=== PATIENT | male | born 1965 | race Caucasian/White ===

== ENCOUNTER 2020-03-05 17:23 | Emergency (ER) | payer SELFPAY ==
--- NOTE | 2020-03-05 19:30 | ER Document Report ---
ED Medical Screen (RME) - General Chief Complaint: ETOH Abuse Stated Complaint: ALCOHOL ABUSE Time Seen by Provider: 03/05/20 19:21 Mode of Arrival: Ambulatory Information source: Patient Notes: Patient is a 54-year-old male who was sent over to the ER by [facility]. They are requesting the patient be medically clear and his alcohol level be reasonable. Patient states that he had been sober 10 years off until approximately 2 weeks ago when he started drinking again. His normal amount of alcohol is 1/5 of liquor a day he has dated he only had about a half of the fifth of liquor today. Last drink was approximately 6 hours ago at around 2:30 PM. Patient also has a history of hypertension. But he does not smoke. Patient expresses desire to stop drinking again. Physical examination: Patient is a well-nourished well-developed 54-year-old male no apparent distress on examination. Cardiac: Patient is tachycardic on monitor the 105 bpm. No murmurs auscultated. Lungs: Bilateral breath sounds breath sounds decreased throughout no rhonchi rales or wheeze heard. Abdomen: Bowel sounds present all 4 quads nontender to palpate. Psych: Patient denies any suicidal homicidal ideation. He is expressing concerns and desire to stop drinking again. I have greeted and performed a rapid initial assessment of this patient. A comprehensive ED assessment and evaluation of the patient, analysis of test results and completion of the medical decision making process will be conducted by additional ED providers. Dictation of this chart was performed using voice recognition software; therefore, there may be some unintended grammatical errors. - Related Data Allergies/Adverse Reactions: No Known Allergies Allergy (Unverified 03/05/20 19:18) Home Medications: metoprolol, losartan Past Medical History - Social History Chew tobacco use (# tins/day): No Frequency of alcohol use: Heavy Drug Abuse: None Physical Exam - Vital signs Vitals: Temp Pulse Resp BP Pulse Ox 98.3 F 105 H 20 147/84 H 94 03/05/20 17:34 03/05/20 17:34 03/05/20 17:34 03/05/20 17:34 03/05/20 17:34 Course - Vital Signs Vital signs: Temp Pulse Resp BP Pulse Ox 98.3 F 105 H 20 147/84 H 94 03/05/20 17:34 03/05/20 17:34 03/05/20 17:34 03/05/20 17:34 03/05/20 17:34
--- NOTE | 2020-03-05 20:33 | RADIOLOGY REPORT (SQ) ---
EXAM DESCRIPTION: XR CHEST 1 VIEW COMPLETED DATE/TME: 03/05/2020 19:53 CLINICAL HISTORY: 54 years, Male, Medical clearance COMPARISON: None. TECHNIQUE: PA view of the chest FINDINGS: Cardiomediastinal silhouette is not enlarged. No acute lung pleural bone abnormalities. IMPRESSION: No acute findings in chest. copyright 2010 [employer]- All Rights Reserved
[2020-03-05 20:56] LABS: ABSOLUTE EOSINOPHILS # (AUTO) 0.1 10^3/uL (0.0-0.6); ABSOLUTE LYMPHOCYTES (AUTO) 3.2 10^3/uL (0.5-4.7); ABSOLUTE MONOCYTES (AUTO) 0.6 10^3/uL (0.1-1.4); ABSOLUTE NEUT (AUTO) 3.3 10^3/uL (1.7-8.2); BASOPHILS % (AUTO) 0.3 % (0-2); HEMATOCRIT 44.3 % (37.9-51.0); HEMOGLOBIN 14.7 g/dL (13.5-17.0); LYMPHOCYTES % (AUTO) 44.2 % (13-45); MEAN CORPUSCULAR HEMOGLOBIN 27.4 pg (27.0-33.4); MEAN CORPUSCULAR HGB CONC 33.1 g/dL (32.0-36.0); MEAN CORPUSCULAR VOLUME 83 fl (80-97); MONOCYTES % (AUTO) 8.8 % (3-13); PLATELET COUNT 178 10^3/uL (150-450); RED BLOOD COUNT 5.36 10^6/uL (4.35-5.55); SEGMENTED NEUTROPHILS % (AUTO) 45.7 % (42-78); TOTAL CELLS COUNTED % (AUTO) 100 %; WHITE BLOOD COUNT 7.1 10^3/uL (4.0-10.5)
--- NOTE | 2020-03-05 21:03 | EKG REPORT ---
SEVERITY:- ABNORMAL ECG - SINUS RHYTHM LATERAL INFARCT, OLD CONSIDER ANTEROSEPTAL INFARCT LOW VOLTAGE EKG : Confirmed by: Steven West MD 05-Mar-2020 21:02:37
[2020-03-05 21:11] LABS: APPEARANCE,URINE SLIGHTLY-CLOUDY; BILIRUBIN,URINE NEGATIVE (NEGATIVE); COLOR,URINE YELLOW; GLUCOSE, URINE NEGATIVE (NEGATIVE); KETONES,URINE NEGATIVE (NEGATIVE); LEUKOCYTE ESTERASE,URINE TRACE (NEGATIVE); NITRITE,URINE NEGATIVE (NEGATIVE); PROTEIN,URINE 100 mg/dL (NEGATIVE); URINE SPECIFIC GRAVITY 1.024; UROBILINOGEN,URINE NEGATIVE mg/dL (<2.0)
[2020-03-05 21:14] LABS: ALBUMIN 4.7 g/dL (3.5-5.0); ALKALINE PHOSPHATASE 103 U/L (38-126); ANION GAP 12 (5-19); ASPARTATE AMINO TRANSFERASE 35 U/L (17-59); BILIRUBIN,DIRECT 0.2 mg/dL (0.0-0.4); BILIRUBIN,TOTAL 0.3 mg/dL (0.2-1.3); BLOOD UREA NITROGEN 11 mg/dL (7-20); CALCIUM 9.3 mg/dL (8.4-10.2); CARBON DIOXIDE 31 mmol/L (22-30); CHLORIDE 103 mmol/L (98-107); GLUCOSE 105 mg/dL (75-110); POTASSIUM 5.1 mmol/L (3.6-5.0); TOTAL PROTEIN 7.6 g/dL (6.3-8.2)
[2020-03-05 21:22] LABS: URINE AMPHETAMINES SCREEN NEGATIVE; URINE BARBITURATES SCREEN NEGATIVE; URINE COCAINE SCREEN NEGATIVE; URINE METHADONE SCREEN NEGATIVE; URINE PHENCYCLIDINE SCREEN NEGATIVE
[2020-03-05 21:23] LABS: URINE BENZODIAZEPINES SCREEN UNCONFIRMED POSITIVE; URINE MARIJUANA (THC) SCREEN UNCONFIRMED POSITIVE
[2020-03-05 21:38] LABS: ALCOHOL 317 mg/dL (NONE DETECTED)
--- NOTE | 2020-03-05 22:43 | ER Document Report ---
ED Substance Abuse / Acc. OD <DANTE RAMON - Last Filed: 03/06/20 07:39> - General Mode of Arrival: Ambulatory Information source: Patient - Related Data Home Medications: metoprolol, losartan <BUD AQUINO JR - Last Filed: 03/06/20 20:23> - General Chief Complaint: ETOH Abuse Stated Complaint: ALCOHOL ABUSE Time Seen by Provider: 03/05/20 19:21 Notes: 03/05/20 19:21 - ED Nursing Note by REAL ROACH Acct Num: [id number] : 1965 Patient Age: 54 pt comes to ed from [facility] for c/o needing detox. pt states he has drank a half a fifth today of vodka. pt states he relapsed approx 2 weeks ago after being sober for 10years. Denies trigger to his relapse. Pt is aaox4 in nad, breathing e/u, speaking in full clear sentences. pt denies pain, no slurring speech or tremors noted. pt reports feeling shakey. last drink approx 1330 today. Initialized on 03/05/20 19:21 - END OF NOTE ED Medical Screen (Nic melara) - General Chief Complaint: ETOH Abuse Stated Complaint: ALCOHOL ABUSE Time Seen by Provider: 03/05/20 19:21 Mode of Arrival: Ambulatory Information source: Patient Notes: Patient is a 54-year-old male who was sent over to the ER by [facility]. They are requesting the patient be medically clear and his alcohol level be reasonable. Patient states that he had been sober 10 years off until approximately 2 weeks ago when he started drinking again. His normal amount of alcohol is 1/5 of liquor a day he has dated he only had about a half of the fifth of liquor today. Last drink was approximately 6 hours ago at around 2:30 PM. Patient also has a history of hypertension. But he does not smoke. Patient expresses desire to stop drinking again. Physical examination: Patient is a well-nourished well-developed 54-year-old male no apparent distress on examination. Cardiac: Patient is tachycardic on monitor the 105 bpm. No murmurs auscultated. Lungs: Bilateral breath sounds breath sounds decreased throughout no rhonchi rales or wheeze heard. Abdomen: Bowel sounds present all 4 quads nontender to palpate. Psych: Patient denies any suicidal homicidal ideation. He is expressing concerns and desire to stop drinking again. MY NOTES 54-year-old male arrives with chief complaint of having nerve problems. He last drank vodka one half of the fifth earlier today and then around 1:00 today had some wine to try to wean down his alcohol cravings. Patient reports she has an RN girlfriend and she insisted him come to the hospital. Patient just got out of [facility] where he was recovering from beer and wine and vodka. Patient reports over 26-year time period of light drinking they were 5 years of very heavy drinking. By heavy drinking patient advises he can consume a bottle of vodka and a bottle of wine. Patient reports for 10 years he was sober and then around 2 weeks ago began to drink again. (BUD AQUINO JR) - Related Data Allergies/Adverse Reactions: No Known Allergies Allergy (Unverified 03/05/20 19:18) Past Medical History - General Information source: Patient - Social History Smoking Status: Never Smoker Cigarette use (# per day): No Chew tobacco use (# tins/day): No Smoking Education Provided: No Frequency of alcohol use: Heavy Drug Abuse: None Lives with: Family Family History: Reviewed & Not Pertinent Patient has suicidal ideation: No Patient has homicidal ideation: No - Past Medical History Cardiac Medical History: Reports: Hx Hypertension <BUD AQUINO JR - Last Filed: 03/06/20 20:23> Review of Systems - Review of Systems Constitutional: See HPI, Weakness EENT: No symptoms reported Cardiovascular: No symptoms reported Respiratory: No symptoms reported Gastrointestinal: No symptoms reported Genitourinary: No symptoms reported Male Genitourinary: No symptoms reported Musculoskeletal: No symptoms reported Skin: No symptoms reported Hematologic/Lymphatic: No symptoms reported Neurological/Psychological: See HPI, Depression, Weakness -: Yes All other systems reviewed and negative <BUD AQUINO JR - Last Filed: 03/06/20 20:23> Physical Exam - Vital signs Interpretation: Hypertensive, Tachycardic - General General appearance: Appears well, Alert - HEENT Head: Normocephalic, Atraumatic Eyes: Normal Conjunctiva: Injected Extraocular movements intact: Yes Eyelashes: Normal Pupils: PERRL Ears: Normal External canal: Normal Mouth/Lips: Normal Mucous membranes: Dry Pharynx: Normal Neck: Normal - Respiratory Respiratory status: No respiratory distress Chest status: Nontender Breath sounds: Normal Chest palpation: Normal - Cardiovascular Rhythm: Regular Heart sounds: Normal auscultation Murmur: No - Abdominal Inspection: Normal Distension: No distension Bowel sounds: Normal Tenderness: Nontender Organomegaly: No organomegaly - Rectal Prostate: Other - deferred - Genitourinary Scrotum: Other - deferred - Back Back: Normal, Nontender - Extremities General upper extremity: Normal inspection, Nontender, Normal color, Normal ROM, Normal temperature General lower extremity: Normal inspection, Nontender, Normal color, Normal ROM, Normal temperature, Normal weight bearing. No: Eamon's sign - Neurological Neuro grossly intact: Yes Cognition: Normal Orientation: AAOx4 Soraya Coma Scale Eye Opening: Spontaneous Soraya Coma Scale Verbal: Oriented [place] Coma Scale Motor: Obeys Commands [place] Coma Scale Total: 15 Speech: Normal Motor strength normal: LUE, RUE, LLE, RLE Sensory: Normal - Psychological Associated symptoms: Normal affect, Normal mood - Skin Skin Temperature: Warm Skin Moisture: Dry Skin Color: Normal <BUD AQUINO JR - Last Filed: 03/06/20 20:23> - Vital signs Vitals: Temp Pulse Resp BP Pulse Ox 98.3 F 105 H 20 147/84 H 94 03/05/20 17:34 03/05/20 17:34 03/05/20 17:34 03/05/20 17:34 03/05/20 17:34 Course - Laboratory Result Diagrams: 03/05/20 20:19 03/05/20 20:19 <DANTE RAMON - Last Filed: 03/06/20 07:39> - Laboratory Result Diagrams: 03/05/20 20:19 03/05/20 20:19 <BUD AQUINO JR - Last Filed: 03/06/20 20:23> - Re-evaluation Re-evalutation: 03/06/20 07:39 I went in to evaluate the patient. He is answering all questions appropriately and is clinically sober. His alcohol level is 100. He reports feeling shaky. Will give 1 mg Ativan p.o. He is medically cleared to go back to [facility] for cosme tment for his alcohol abuse (DANTE RAMON) - Vital Signs Vital signs: Temp Pulse Resp BP Pulse Ox 97.9 F 86 19 141/81 H 98 03/06/20 08:34 03/06/20 08:34 03/06/20 08:34 03/06/20 08:34 03/06/20 08:34 - Laboratory Laboratory results interpreted by me: 03/05/20 03/05/20 03/05/20 20:19 20:19 20:19 RDW 16.0 H Sodium 146.2 H Potassium 5.1 H Carbon Dioxide 31 H Urine Protein 100 H Ur Leukocyte Esterase TRACE H Serum Alcohol 317 H* Critical Care Note <BUD AQUINO JR - Last Filed: 03/06/20 20:23> - Critical Care Note Comments: at 0300 this stable etoh intoxicated pt was turned over for disposition and repeat ETOH level. [facility] IRBY did take over and re-evaluate pt in early AM @0800 and cleared pt for [facility]. (BUD AQUINO JR) Discharge <DANTE RAMON - Last Filed: 03/06/20 07:39> <BUD AQUINO JR - Last Filed: 03/06/20 20:23> - Discharge Clinical Impression: Alcohol abuse Alcohol intoxication Qualifiers: Complication of substance-induced condition: uncomplicated Qualified Code(s): F10.920 - Alcohol use, unspecified with intoxication, uncomplicated Condition: Stable Disposition: OTHER Additional Instructions: per Dante IRBY pt was available/stable for [facility]
[2020-03-05] MEDS ORDERED: LORAZEPAM 1 MG TABLET PO ONE (22:59)
[2020-03-06] MEDS ORDERED: THIAMINE HCL 100 MG, FOLIC ACID 1 MG in NORMAL SALINE 250 ML IV ONE ×2 (01:04→03:45)
[2020-03-06] MEDS ORDERED: NORMAL SALINE 1000 ML 1,000 ML IV ONE (01:04)
[2020-03-06] MEDS ORDERED: LORAZEPAM 1 MG TABLET PO ONE ×2 (02:07→07:40)
[2020-03-06] MEDS ORDERED: THIAMINE HCL INJ 200 MG/2 ML VIAL ONE (03:00)
[2020-03-06 08:36] VITALS: BP 141/81
== END 2020-03-06 08:02 | disposition other institution (70) ==
LOC: ER 17:23
DX: F10.129 Alcohol abuse with intoxication, unspecified (principal); R53.1 Weakness; I10 Essential (primary) hypertension
CPT/HCPCS: 93005; 99284; 96374; 96375; 36415; 80307 ×2; 85025; 80053; 81001; 71045; 93010; J3411; J7030; J3490; J7050